=== PATIENT | female | born 1960 ===

== ENCOUNTER 2019-12-17 15:01 | Outpatient (CLI) | payer MEDICAID | END 2019-12-17 15:02 | disposition home or self-care (01) | LOC: SLR 15:01 | PROVIDERS: ATTEND Otolaryngology | DX: G47.33 Obstructive sleep apnea (adult) (pediatric) (principal); R40.0 Somnolence; Z86.73 Personal history of transient ischemic attack (TIA), and cerebral infarction without residual deficits | CPT/HCPCS: 95811 ==

== ENCOUNTER 2020-06-07 12:46 | Emergency (ER) | payer MEDICAID ==
--- NOTE | 2020-06-07 12:57 | Event Note ---
ED Screening Note ED Screening Note: Patient presents for upper abdominal pain that began last night She states that she is have been having intermittent episodes of blood in her stool for a couple weeks and is currently seeing a GI doctor and has an appointment on Saturday She has associated nausea She denies any fever, vomiting, diarrhea She states that she did not take her blood pressure medication this morning but reports that she took it yesterday She denies any chest pain or shortness of breath This initial assessment/diagnostic orders/clinical plan/treatment(s) is/are subject to change based on patients health status, clinical progression and re- assessment by fellow clinical providers in the ED. Further treatment and workup at subsequent clinical providers discretion. Patient/guardian urged not to elope from the ED as their condition may be serious if not clinically assessed and managed. Initial orders include: Labs, UA, EKG, x-ray
--- NOTE | 2020-06-07 13:58 | XRay Report ---
XR abd series w cxr 1V INDICATION / CLINICAL INFORMATION: upper abd pain, htn urgency, gi bleed. COMPARISON: None available. FINDINGS: SUPPORT DEVICES: None. HEART / MEDIASTINUM: No significant abnormality. LUNGS / PLEURA: Lungs are clear. Costophrenic sulci are sharp. No pneumothorax. ABDOMEN: Nonobstructive bowel gas pattern. No pneumoperitoneum. ADDITIONAL FINDINGS: No significant additional findings. IMPRESSION: 1. No acute findings. 2. Moderate quantity of stool. Nonobstructive bowel gas pattern. Signer Name: Andrei Lerner MD Signed: 06/07/2020 1:53 PM Workstation Name: [id number]
[2020-06-07 14:00] LABS: Basophils % (Auto) 0.5 % (0.0-1.8); Eosinophils # (Auto) 0.2 K/mm3 (0.0-0.4); Eosinophils % (Auto) 2.5 % (0.0-4.3); Hematocrit 34.8 % (30.3-42.9); Hemoglobin 11.8 gm/dl (10.1-14.3); Lymphocytes # (Auto) 1.6 K/mm3 (1.2-5.4); Lymphocytes % (Auto) 23.3 % (13.4-35.0); Mean Corpuscular HGB Conc 34 % (30-34); Mean Corpuscular Volume 91 fl (79-97); Monocytes # (Auto) 0.6 K/mm3 (0.0-0.8); Monocytes % (Auto) 8.3 % (0.0-7.3); Platelet Count 260 K/mm3 (140-440); Red Blood Count 3.81 M/mm3 (3.65-5.03); Red Cell Distribution Width 13.2 % (13.2-15.2)
[2020-06-07 14:09] LABS: INR 0.96 (0.87-1.13)
[2020-06-07 14:10] LABS: Partial Thromboplastin Time 28.9 Sec. (24.2-36.6)
[2020-06-07 14:26] LABS: Alanine Aminotransferase 16 units/L (7-56); Albumin 3.3 g/dL (3.9-5); BUN/Creatinine Ratio 14; Blood Urea Nitrogen 40 mg/dL (7-17); Calcium 9.1 mg/dL (8.4-10.2); Hemolysis Index 41
[2020-06-07] MEDS ORDERED: cloNIDine 0.1 MG TAB PO ONE (15:09)
--- NOTE | 2020-06-07 15:15 | Emergency Department Report ---
ED General Adult HPI - General Chief complaint: High BP Stated complaint: ELEVATED BLOOD PRESSURE Time Seen by Provider: 06/07/20 12:56 Source: patient, EMS Mode of arrival: Wheelchair Limitations: No Limitations - History of Present Illness Initial comments: Patient is 59 years old female with history of hypertension and chronic kidney disease. Patient presented to the ER complaining of elevated blood pressure and upper abdominal pain. Patient denied any chest pain or shortness of breath. Patient also denied any headache, neck pain, weakness numbness or tingling sensation. Patient stated that she has been taking her blood pressure but having trouble controlled the blood pressure. She was sent to the emergency room by her railway signalling engineer for evaluation. - Related Data Allergies Allergy/AdvReac Type Severity Reaction Status Date / Time metoclopramide [From Reglan] AdvReac Shortness Verified 06/07/20 12:58 of Breath morphine AdvReac Shortness Verified 06/07/20 12:58 of Breath ondansetron [From Zofran] AdvReac Shortness Verified 06/07/20 12:58 of Breath oxycodone AdvReac Shortness Verified 06/07/20 12:58 of Breath Penicillins AdvReac Hives Verified 06/07/20 12:58 tramadol AdvReac Vomiting Verified 06/07/20 12:58 ED Review of Systems ROS: Stated complaint: ELEVATED BLOOD PRESSURE Other details as noted in HPI Comment: All other systems reviewed and negative Constitutional: denies: chills, fever ENT: denies: throat pain Respiratory: denies: orthopnea, shortness of breath Cardiovascular: denies: chest pain, palpitations Gastrointestinal: abdominal pain, constipation. denies: nausea, vomiting, diarrhea, hematemesis, melena, hematochezia Musculoskeletal: denies: back pain Neurological: denies: headache, weakness, numbness, paresthesias, confusion, abnormal gait ED Past Medical Hx - Past Medical History Hx Hypertension: Yes Hx Congestive Heart Failure: Yes Hx Diabetes: Yes Hx Renal Disease: Yes Additional medical history: vit d deficiency - Social History Smoking Status: Never Smoker Substance Use Type: None ED Physical Exam - General Limitations: No Limitations General appearance: alert, in no apparent distress - Head Head exam: Present: atraumatic, normocephalic, normal inspection - Eye Eye exam: Present: normal appearance, PERRL - ENT ENT exam: Present: normal exam, normal orophraynx, mucous membranes moist - Neck Neck exam: Present: normal inspection, full ROM. Absent: tenderness, meningismus - Respiratory Respiratory exam: Present: normal lung sounds bilaterally - Cardiovascular Cardiovascular Exam: Present: regular rate, normal rhythm, normal heart sounds - GI/Abdominal GI/Abdominal exam: Present: soft, normal bowel sounds. Absent: distended, tenderness, guarding, rebound, rigid, organomegaly, mass, bruit, pulsatile mass, hernia - Extremities Exam Extremities exam: Present: normal inspection, full ROM, normal capillary refill - Back Exam Back exam: Present: normal inspection, full ROM. Absent: CVA tenderness (R), CVA tenderness (L) - Neurological Exam Neurological exam: Present: alert, oriented X3, CN II-XII intact - Psychiatric Psychiatric exam: Present: normal mood - Skin Skin exam: Present: warm, dry, intact ED Course Vital Signs 06/07/20 12:56 Temperature 98.3 F Pulse Rate 80 Respiratory 20 Rate Blood Pressure 208/106 O2 Sat by Pulse 100 Oximetry ED Medical Decision Making - Lab Data Result diagrams: 06/07/20 13:15 06/07/20 13:15 - EKG Data -: EKG Interpreted by Mt EKG shows normal: sinus rhythm Rate: normal - EKG Data Interpretation: no acute changes - Radiology Data Radiology results: report reviewed - Medical Decision Making Patient is 59 years old female with history of hypertension and chronic kidney disease. Patient presented to the ER complaining of elevated blood pressure and upper abdominal pain. Patient denied any chest pain or shortness of breath. Patient also denied any headache, neck pain, weakness numbness or tingling sensation. Patient stated that she has been taking her blood pressure but having trouble controlled the blood pressure. She was sent to the emergency room by her railway signalling engineer for evaluation. EKG is unremarkable. Chest x-ray and abdomen is negative for acute finding except for constipation. Labs reviewed and is unremarkable except for chronic elevation of creatinine of 2.9 and a BUN of 40. Patient received clonidine 0.2 mg which helped her blood pressure significantly. Patient advised to follow-up with her primary care physician and her railway signalling engineer in the next 2 to 3 days and to return to the ER if she develop any new symptoms. Critical care attestation.: If time is entered above; I have spent that time in minutes in the direct care of this critically ill patient, excluding procedure time. ED Disposition Clinical Impression: Malignant hypertension, Acute abdominal pain, Constipation Disposition: DC-01 TO HOME OR SELFCARE Is pt being admited?: No Condition: Stable Instructions: Hypertension (ED), Constipation, Adult, Abdominal Pain, Adult, Managing Your Hypertension Referrals: PRIMARY CARE, [Referring] - 3-5 Days
[2020-06-07 17:46] VITALS: BP 178/88
--- NOTE | 2020-06-09 10:42 | Electrocardiograph Report ---
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
== END 2020-06-07 17:05 | disposition home or self-care (01) ==
LOC: ED 12:46
DX: I13.0 Hypertensive heart and chronic kidney disease with heart failure and stage 1 through stage 4 chronic kidney disease, or unspecified chronic kidney disease (principal); N18.9 Chronic kidney disease, unspecified; E11.22 Type 2 diabetes mellitus with diabetic chronic kidney disease; I50.9 Heart failure, unspecified; K59.00 Constipation, unspecified; R10.10 Upper abdominal pain, unspecified; Z79.899 Other long term (current) drug therapy; Z88.8 Allergy status to other drugs, medicaments and biological substances
CPT/HCPCS: 36415; 74022; 80053; 83690; 84484; 85025; 85610; 85730; 93005

== ENCOUNTER 2021-09-08 12:26 | Inpatient (IN) | payer MEDICARE ==
[2021-09-08] MEDS ORDERED: HYDROmorphone 1 MG/1 ML INJ IV ONE ×2 (13:24→17:31)
[2021-09-08] MEDS ORDERED: ONDANSETRON 4 MG/2 ML INJ IV ONE ×2 (13:24→17:31)
--- NOTE | 2021-09-08 13:56 | XRay Report ---
CHEST 1 VIEW 09/08/2021 12:46 PM INDICATION / CLINICAL INFORMATION: Vas-Cath pain. COMPARISON: 06/07/20. FINDINGS: SUPPORT DEVICES: There is a new right jugular Vas-Cath with the tip overlying the upper right atrium. HEART / MEDIASTINUM: There is borderline cardiomegaly. Pulmonary vasculature is slightly prominent ce ntrally. LUNGS / PLEURA: Interstitial lung markings in the lower lung zones are increased. No focal consolidat ion or pleural effusion. No pneumothorax. ADDITIONAL FINDINGS: No significant additional findings. IMPRESSION: Probable mild interstitial edema. Signer Name: Domo Nj MD Signed: 09/08/2021 1:51 PM Workstation Name: [email or web address]
--- NOTE | 2021-09-08 14:00 | Emergency Department Report ---
ED General Adult HPI - General Chief complaint: Medical Clearance Stated complaint: CHEST PAIN/NON CARDIAC Time Seen by Provider: 09/08/21 12:58 Source: EMS Mode of arrival: Stretcher Limitations: No Limitations - History of Present Illness Initial comments: 60-year-old female the past medical history of CHF, diabetes, end-stage renal disease on dialysis Saturday, Saturday, Saturday, hypertension presents to the hospital complaints of right thoracic chest pain at area of Vas-Cath and right inguinal/pubic mounds pain. Patient has had right sided chest wall pain at area of Vas-Cath for at least 1 month and worsening for the past week. Patient did receive her dialysis Saturday, and Saturday, however, did not receive dialysis today because transportation did not pick her up as scheduled. [facility] also [facility] to have her chest wall catheter checked however, her transportation did not show up to take her to her scheduled appointment. Vas-Cath was originally October 2020 when her dialysis was initiated. patient had a left arm AV access placed by her vascular surgeon 9 days ago however, it is not mature enough for use. Patient has a secondary complaint of right inguinal and pubic mounds pain due to a "cyst" for the past 4 days. No trauma reported. Patient can feel a "cyst" deep in the right pubic mounds area it is tender to palpation And she feels that her right upper thigh is swollen. Pain is constant, worse with palpation, moderate in intensity, without alleviating factors. no reports of fever. Grip Boss: Dr. Chavez Severity scale (0 -10): 7 - Related Data Previous Rx's Medication Instructions Recorded Last Taken Type Docusate Sodium [Colace] 100 mg PO BID PRN #60 capsule 06/07/20 Unknown Rx Lactulose 10 gm PO DAILY #70 ml 06/07/20 Unknown Rx Allergies Allergy/AdvReac Type Severity Reaction Status Date / Time Penicillins Allergy Hives Verified 09/08/21 18:21 metoclopramide [From Reglan] AdvReac Shortness Verified 09/08/21 12:35 of Breath morphine AdvReac Shortness Verified 09/08/21 12:35 of Breath ondansetron [From Zofran] AdvReac Shortness Verified 09/08/21 12:35 of Breath oxycodone AdvReac Shortness Verified 09/08/21 12:35 of Breath tramadol AdvReac Vomiting Verified 09/08/21 12:35 ED Review of Systems ROS: Stated complaint: CHEST PAIN/NON CARDIAC Other details as noted in HPI Comment: All other systems reviewed and negative ED Past Medical Hx - Past Medical History Previous Medical History?: Yes Hx Hypertension: Yes Hx Congestive Heart Failure: Yes Hx Diabetes: Yes Hx Renal Disease: Yes Additional medical history: vit d deficiency - Social History Smoking Status: Never Smoker Substance Use Type: None - Medications Home Medications: Home Medications Medication Instructions Recorded Confirmed Last Taken Type Docusate Sodium [Colace] 100 mg PO BID PRN #60 capsule 06/07/20 Unknown Rx Lactulose 10 gm PO DAILY #70 ml 06/07/20 Unknown Rx ED Physical Exam - General Limitations: No Limitations - Other Other exam information: General: No acute distress Head: Atraumatic Eyes: normal appearance ENT: Moist mucous membranes Neck: Normal appearance, no midline tenderness Chest: Clear to auscultation bilaterally. Right-sided chest wall Vas-Cath. Is no longer secured by adhesive and there is not a suture anchoring the catheter. No skin erythema or drainage. Tenderness along the Burrowed catheter extending towards the neck CV: Regular rate and rhythm Abdomen: Soft, normal bowel sounds, nontender, nondistended, no rebound or guarding Back: Normal inspection Extremity: Normal inspection, full range of motion, tenderness to right inguinal area without palpable mass, abscess, cyst, or adenopathy. Tenderness along the right inferior pubic mounds area. No skin erythema or warmth. No significant swelling noted. 2+ distal DP pulse. lef upper arm av access with sutures in place and palpable thrill Neuro: Alert O x 3, no facial asymmetry, speech clear, no gross motor sensory deficit Psych: Appropriate behavior Skin: No rash ED Course Vital Signs 09/08/21 09/08/21 09/08/21 12:29 13:02 19:20 Temperature 97.6 F 98.4 F Pulse Rate 100 H 96 H 108 H Respiratory 16 18 18 Rate Blood Pressure 180/68 196/98 205/65 [Left] O2 Sat by Pulse 96 98 98 Oximetry - Reevaluation(s) Reevaluation #1: 09/08/21 17:32 Patient continues complain of pain to right pubic mounds area with complaints of palpation of a cyst or not. I was unable to palpate this on examination the patient does have tenderness with deep palpation to the area. Imaging test do not reveal any acute abnormality. Patient states initial Dilaudid 0.5 mg did not help with pain therefore additional Dilaudid and Zofran ordered. - Consultations Consultation #1: 09/08/21 16: [address] Guevara's partner Dr. Grande who recommends admission for dialysis 09/08/21 16: 29 CASE [facility], VAS CATH WILL BE EVALUATED ED Medical Decision Making - Lab Data Result diagrams: 09/08/21 15:03 09/08/21 15:03 Lab Results 09/08/21 09/08/21 Range/Units 15:03 15:03 WBC 8.0 (4.5-11.0) K/mm3 RBC 3.69 (3.65-5.03) M/mm3 Hgb 10.3 (10.1-14.3) gm/dl Hct 32.3 (30.3-42.9) % MCV 88 (79-97) fl MCH 28 (28-32) pg MCHC 32 (30-34) % RDW 16.5 H (13.2-15.2) % Plt Count 306 (140-440) K/mm3 Sodium 142 (137-145) mmol/L Potassium 4.0 (3.6-5.0) mmol/L Chloride 101.4 (98-107) mmol/L Carbon Dioxide 28 (22-30) mmol/L Anion Gap 17 mmol/L BUN 34 H (7-17) mg/dL Creatinine 3.8 H (0.6-1.2) mg/dL Estimated GFR 12 ml/min BUN/Creatinine Ratio 9 % Glucose 106 H (65-100) mg/dL Calcium 9.0 (8.4-10.2) mg/dL - Radiology Data Radiology results: report reviewed CHEST 1 VIEW 09/08/2021 12:46 PM INDICATION / CLINICAL INFORMATION: Vas-Cath pain. COMPARISON: 06/07/20. FINDINGS: SUPPORT DEVICES: There is a new right jugular Vas-Cath with the tip overlying the upper right atrium. HEART / MEDIASTINUM: There is borderline cardiomegaly. Pulmonary vasculature is slightly prominent centrally. LUNGS / PLEURA: Interstitial lung markings in the lower lung zones are increased. No focal consolidation or pleural effusion. No pneumothorax. ADDITIONAL FINDINGS: No significant additional findings. IMPRESSION: Probable mild interstitial edema. Bilateral lower extremity duplex Doppler ultrasound INDICATION: Right inguinal pain FINDINGS: Bilateral common femoral veins, superficial femoral veins and popliteal veins have normal compressibility and phasic flow IMPRESSION: No evidence for DVT. CT ABDOMEN AND PELVIS WITHOUT CONTRAST INDICATION: right inguinal, pelvic pain CONTRAST: Without IV COMPARISON: None available. All CT scans at this location are performed using CT dose reduction for ALARA by means of automated exposure control. FINDINGS: Small bilateral pleural effusions are seen, greater on the left. Small to moderate pericardial effusion. Heart is enlarged. Pacer is noted. Bibasilar atelectatic changes are seen, greater on the left, with mild pneumonitis not excluded. Mild increased interstitial markings are seen which slightly suggest pulmonary edema but is nonspecific. Patulous lower thoracic esophagus is seen as can be noted with reflux. Gallbladder shows no definite abnormalities. No biliary dilatation. No urinary tract calculi or evidence of obstruction. Small calcifications along the course of the ureters appear to be vascular. Colonic diverticulosis without evidence of diverticulitis. No bowel obstruction. No significant abdominal wall herniation. No inflammatory changes. Appendix not visualized. No abdominal or pelvic masses seen. Uterus probably removed. No inguinal hernia is seen. No masses or inflammation noted. IMPRESSION: 1. No acute abnormalities are seen in the abdomen or pelvis. No obvious source of right lateral pain is identified. 2. Findings in the thorax suggesting mild congestive changes. Mild pneumonitis not excluded in the left base. 3. Patulous lower esophagus often seen with reflux. Critical Care Time: No Critical care attestation.: If time is entered above; I have spent that time in minutes in the direct care of this critically ill patient, excluding procedure time. ED Disposition Clinical Impression: ESRD (end stage renal disease), Missed dialysis, Chest wall pain, Right groin pain Disposition: ADMITTED INPATIENT Is pt being admited?: Yes Condition: Stable Time of Disposition: 17:53 (dR Last/HOSPTIALIST)
--- NOTE | 2021-09-08 14:25 | Cat Scan Report ---
CT ABDOMEN AND PELVIS WITHOUT CONTRAST INDICATION: right inguinal, pelvic pain CONTRAST: Without IV COMPARISON: None available. All CT scans at this location are performed using CT dose reduction for ALARA by means of automated e xposure control. FINDINGS: Small bilateral pleural effusions are seen, greater on the left. Small to moderate pericard ial effusion. Heart is enlarged. Pacer is noted. Bibasilar atelectatic changes are seen, greater on t he left, with mild pneumonitis not excluded. Mild increased interstitial markings are seen which slig htly suggest pulmonary edema but is nonspecific. Patulous lower thoracic esophagus is seen as can be noted with reflux. Gallbladder shows no definite abnormalities. No biliary dilatation. No urinary tract calculi or evide nce of obstruction. Small calcifications along the course of the ureters appear to be vascular. Colon ic diverticulosis without evidence of diverticulitis. No bowel obstruction. No significant abdominal wall herniation. No inflammatory changes. Appendix not visualized. No abdominal or pelvic masses seen . Uterus probably removed. No inguinal hernia is seen. No masses or inflammation noted. IMPRESSION: 1. No acute abnormalities are seen in the abdomen or pelvis. No obvious source of right lateral pain is identified. 2. Findings in the thorax suggesting mild congestive changes. Mild pneumonitis not excluded in the le ft base. 3. Patulous lower esophagus often seen with reflux. Signer Name: Zachary Juarez MD Signed: 09/08/2021 2:20 PM Workstation Name: [id number]
--- NOTE | 2021-09-08 14:33 | Vascular Lab Report ---
Bilateral lower extremity duplex Doppler ultrasound INDICATION: Right inguinal pain FINDINGS: Bilateral common femoral veins, superficial femoral veins and popliteal veins have normal c ompressibility and phasic flow IMPRESSION: No evidence for DVT. Signer Name: Craig Harper MD Signed: 09/08/2021 2:29 PM Workstation Name: [id number]
[2021-09-08 15:27] LABS: Hematocrit 32.3 % (30.3-42.9); Hemoglobin 10.3 gm/dl (10.1-14.3); Mean Corpuscular HGB Conc 32 % (30-34); Mean Corpuscular Volume 88 fl (79-97); Platelet Count 306 K/mm3 (140-440); Red Blood Count 3.69 M/mm3 (3.65-5.03); Red Cell Distribution Width 16.5 % (13.2-15.2)
--- NOTE | 2021-09-08 16:31 | Event Note ---
Date: 09/08/21 60-year-old female who presents with end-stage renal disease and right PermCath tenderness along the tract. No erythema. No white count. No purulence. Sutures are no longer connected to the catheter, but the catheter has been in place since October 2020. This is expected with for a catheter that has been in place for so long. In the absence of infection, or catheter malfunction, I am not sure what we can offer the patient other than pain medication. Will see patient tomorrow. Consider blood cultures in the interim.
[2021-09-08 17:24] LABS: Basophils % (Manual) 0 % (0.0-1.8); Total Cells Counted 100
[2021-09-08 17:33] LABS: Anisocytosis 2+; Hypochromasia 1+; Platelet Estimate Consistent w Auto; Stomatocytes Few; Target Cells 1+
[2021-09-08] MEDS ORDERED: ACETAMINOPHEN 325 MG TAB PO PRN (18:01)
[2021-09-08] MEDS ORDERED: ONDANSETRON 4 MG/2 ML INJ IV PRN (18:01)
[2021-09-08] MEDS ORDERED: oxyCODONE /ACETAMINOPHEN 5-325MG TAB PO PRN (18:01)
[2021-09-08] MEDS ORDERED: METOCLOPRAMIDE 10 MG/2 ML INJ IV PRN (18:01)
[2021-09-08] MEDS ORDERED: diphenhydrAMINE 25 MG CAP PO PRN (20:00)
[2021-09-08] MEDS ORDERED: hydrALAZINE 20 MG/1 ML INJ ONE (22:53)
[2021-09-08 23:00] VITALS: BP 207/107
[2021-09-09] MEDS ORDERED: traZODone 100 MG TAB PO ONE (00:07)
--- NOTE | 2021-09-09 07:39 | History and Physical Report ---
History of Present Illness Date of examination: 09/08/21 Date of admission: 09/08/21 18:01 Chief complaint: Missed hemodialysis today History of present illness: 60-year-old female the past medical history of CHF, diabetes, end-stage renal disease on dialysis Saturday, Saturday, Saturday, hypertension presents to the hospital complaints of right thoracic chest pain at area of Vas-Cath and right inguinal/pubic mounds pain. Patient has had right sided chest wall pain at area of Vas-Cath for at least 1 month and worsening for the past week. Patient did receive her dialysis Saturday, and Saturday, however, did not receive dialysis today because transportation did not pick her up as scheduled. She also was supposed to follow-up with [facility] vascular Dr. Queen 4 days ago to have her chest wall catheter checked however, her transportation did not show up to take her to her scheduled appointment. Vas-Cath was originally October 2020 when her dialysis was initiated. patient had a left arm AV access placed by her vascular surgeon 9 days ago however, it is not mature enough for use. - Past Medical History --Previous Medical History?: Yes --Hypertension: Yes --Congestive Heart Failure: Yes --Diabetes: Yes --Renal Disease: Yes --Additional medical history: vit d deficiency - Social History --Smoking Status: Never Smoker --Substance Use Type: None - Medications --Home Medications: Home Medications Medication Instructions Recorded Confirmed Last Taken Type Docusate Sodium [Colace] 100 mg PO BID PRN #60 capsule 06/07/20 Unknown Rx Lactulose 10 gm PO DAILY #70 ml 06/07/20 Unknown Rx Review of Systems ROS: Stated complaint: CHEST PAIN/NON CARDIAC Other details as noted in HPI Comment: All other systems reviewed and negative Medications and Allergies Allergies Allergy/AdvReac Type Severity Reaction Status Date / Time Penicillins Allergy Hives Verified 09/08/21 18:21 metoclopramide [From Reglan] AdvReac Shortness Verified 09/08/21 12:35 of Breath morphine AdvReac Shortness Verified 09/08/21 12:35 of Breath ondansetron [From Zofran] AdvReac Shortness Verified 09/08/21 12:35 of Breath oxycodone AdvReac Shortness Verified 09/08/21 12:35 of Breath tramadol AdvReac Vomiting Verified 09/08/21 12:35 Home Medications Medication Instructions Recorded Confirmed Last Taken Type Docusate Sodium [Colace] 100 mg PO BID PRN #60 capsule 06/07/20 Unknown Rx Lactulose 10 gm PO DAILY #70 ml 06/07/20 Unknown Rx traZODone [Desyrel] 100 mg PO QHS 09/09/21 09/09/21 Unknown History Exam - Constitutional Vitals: Temp Pulse Resp BP Pulse Ox 98.4 F 90 25 H 207/107 94 09/08/21 19:20 09/08/21 22:58 09/08/21 22:01 09/08/21 22:58 09/08/21 21:01 General appearance: Present: no acute distress, well-nourished - EENT Eyes: Present: PERRL ENT: hearing intact, clear oral mucosa - Neck Neck: Present: supple, normal ROM - Respiratory Respiratory effort: normal Respiratory: bilateral: CTA - Cardiovascular Heart rate: 78 Rhythm: regular Heart Sounds: Present: S1 & S2. Absent: rub, click - Extremities Extremities: pulses symmetrical, No edema Peripheral Pulses: within normal limits - Abdominal General gastrointestinal: Present: soft, non-tender, non-distended, normal bowel sounds Female genitourinary: Present: normal - Integumentary Integumentary: Present: clear, warm, dry - Musculoskeletal Musculoskeletal: gait normal, strength equal bilaterally - Psychiatric Psychiatric: appropriate mood/affect, intact judgment & insight - Neurologic Neurologic: CNII-XII intact, moves all extremities Results - Labs CBC & Chem 7: 09/08/21 15:03 09/08/21 15:03 Labs: Laboratory Last Values WBC 8.0 K/mm3 (4.5-11.0) 09/08/21 15:03 RBC 3.69 M/mm3 (3.65-5.03) 09/08/21 15:03 Hgb 10.3 gm/dl (10.1-14.3) 09/08/21 15:03 Hct 32.3 % (30.3-42.9) 09/08/21 15:03 MCV 88 fl (79-97) 09/08/21 15:03 MCH 28 pg (28-32) 09/08/21 15:03 MCHC 32 % (30-34) 09/08/21 15:03 RDW 16.5 % (13.2-15.2) H 09/08/21 15:03 Plt Count 306 K/mm3 (140-440) 09/08/21 15:03 Add Manual Diff Complete 09/08/21 15:03 Total Counted 100 09/08/21 15:03 Seg Neuts % (Manual) 66.0 % (40.0-70.0) 09/08/21 15:03 Band Neutrophils % 0 % 09/08/21 15:03 Lymphocytes % (Manual) 19.0 % (13.4-35.0) 09/08/21 15:03 Reactive Lymphs % (Man) 0 % 09/08/21 15:03 Monocytes % (Manual) 10.0 % (0.0-7.3) H 09/08/21 15:03 Eosinophils % (Manual) 5.0 % (0.0-4.3) H 09/08/21 15:03 Basophils % (Manual) 0 % (0.0-1.8) 09/08/21 15:03 Metamyelocytes % 0 % 09/08/21 15:03 Myelocytes % 0 % 09/08/21 15:03 Promyelocytes % 0 % 09/08/21 15:03 Blast Cells % 0 % 09/08/21 15:03 Nucleated RBC % Not Reportable 09/08/21 15:03 Seg Neutrophils # Man 5.3 K/mm3 (1.8-7.7) 09/08/21 15:03 Band Neutrophils # 0.0 K/mm3 09/08/21 15:03 Lymphocytes # (Manual) 1.5 K/mm3 (1.2-5.4) 09/08/21 15:03 Abs React Lymphs (Man) 0.0 K/mm3 09/08/21 15:03 Monocytes # (Manual) 0.8 K/mm3 (0.0-0.8) 09/08/21 15:03 Eosinophils # (Manual) 0.4 K/mm3 (0.0-0.4) 09/08/21 15:03 Basophils # (Manual) 0.0 K/mm3 (0.0-0.1) 09/08/21 15:03 Metamyelocytes # 0.0 K/mm3 09/08/21 15:03 Myelocytes # 0.0 K/mm3 09/08/21 15:03 Promyelocytes # 0.0 K/mm3 09/08/21 15:03 Blast Cells # 0.0 K/mm3 09/08/21 15:03 WBC Morphology Not Reportable 09/08/21 15:03 Hypersegmented Neuts Not Reportable 09/08/21 15:03 Hyposegmented Neuts Not Reportable 09/08/21 15:03 Hypogranular Neuts Not Reportable 09/08/21 15:03 Smudge Cells Not Reportable 09/08/21 15:03 Toxic Granulation Not Reportable 09/08/21 15:03 Toxic Vacuolation Not Reportable 09/08/21 15:03 Dohle Bodies Not Reportable 09/08/21 15:03 Pelger-Huet Anomaly Not Reportable 09/08/21 15:03 Mimi Rods Not Reportable 09/08/21 15:03 Platelet Estimate Consistent w auto 09/08/21 15:03 Clumped Platelets Not Reportable 09/08/21 15:03 Plt Clumps, EDTA Not Reportable 09/08/21 15:03 Large Platelets Not Reportable 09/08/21 15:03 Giant Platelets Not Reportable 09/08/21 15:03 Platelet Satelliting Not Reportable 09/08/21 15:03 Plt Morphology Comment Not Reportable 09/08/21 15:03 RBC Morphology Not Reportable 09/08/21 15:03 Dimorphic RBCs Not Reportable 09/08/21 15:03 Polychromasia Not Reportable 09/08/21 15:03 Hypochromasia 1+ 09/08/21 15:03 Poikilocytosis Not Reportable 09/08/21 15:03 Anisocytosis 2+ 09/08/21 15:03 Microcytosis Not Reportable 09/08/21 15:03 Macrocytosis Not Reportable 09/08/21 15:03 Spherocytes Not Reportable 09/08/21 15:03 Pappenheimer Bodies Not Reportable 09/08/21 15:03 Sickle Cells Not Reportable 09/08/21 15:03 Target Cells 1+ 09/08/21 15:03 Tear Drop Cells Not Reportable 09/08/21 15:03 Ovalocytes Not Reportable 09/08/21 15:03 Stomatocytes Few 09/08/21 15:03 Helmet Cells Not Reportable 09/08/21 15:03 [place] Bodies Not Reportable 09/08/21 15:03 [place] Rings Not Reportable 09/08/21 15:03 Olivia Cells Not Reportable 09/08/21 15:03 Bite Cells Not Reportable 09/08/21 15:03 Crenated Cell Not Reportable 09/08/21 15:03 Elliptocytes Not Reportable 09/08/21 15:03 Acanthocytes (Spur) Not Reportable 09/08/21 15:03 Rouleaux Not Reportable 09/08/21 15:03 Hemoglobin C Crystals Not Reportable 09/08/21 15:03 Schistocytes Not Reportable 09/08/21 15:03 Malaria parasites Not Reportable 09/08/21 15:03 Ty Bodies Not Reportable 09/08/21 15:03 Hem Pathologist Commnt No 09/08/21 15:03 Sodium 142 mmol/L (137-145) 09/08/21 15:03 Potassium 4.0 mmol/L (3.6-5.0) 09/08/21 15:03 Chloride 101.4 mmol/L (98-107) 09/08/21 15:03 Carbon Dioxide 28 mmol/L (22-30) 09/08/21 15:03 Anion Gap 17 mmol/L 09/08/21 15:03 BUN 34 mg/dL (7-17) H 09/08/21 15:03 Creatinine 3.8 mg/dL (0.6-1.2) H 09/08/21 15:03 Estimated GFR 12 ml/min 09/08/21 15:03 BUN/Creatinine Ratio 9 % 09/08/21 15:03 Glucose 106 mg/dL (65-100) H 09/08/21 15:03 Calcium 9.0 mg/dL (8.4-10.2) 09/08/21 15:03 Short CBC 09/08/21 Range/Units 15:03 WBC 8.0 (4.5-11.0) K/mm3 Hgb 10.3 (10.1-14.3) gm/dl Hct 32.3 (30.3-42.9) % Plt Count 306 (140-440) K/mm3 BMP 09/08/21 15:03 Sodium 142 Potassium 4.0 Chloride 101.4 Carbon Dioxide 28 BUN 34 H Creatinine 3.8 H Glucose 106 H Calcium 9.0 Assessment and Plan Advance Directives: Yes (Full code) VTE prophylaxis?: Chemical Plan of care discussed with patient/family: Yes - Patient Problems (1) Hypervolemia Status: Acute Plan to address problem: Secondary to missed hemodialysis Needs emergent hemodialysis (2) End-stage renal disease on hemodialysis Status: Chronic Plan to address problem: Nephrology consulted (3) Chest wall pain Status: Acute Plan to address problem: Had Vas-Cath for nearly 9 to 10 months Patient had a AV fistula to 2 days ago Needs a Vas-Cath change (4) Hypertension Status: Chronic Qualifiers: Hypertension type: primary hypertension Qualified Code(s): I10 - Essential (primary) hypertension Plan to address problem: Continue antihypertensives and adjust medications (5) DVT prophylaxis Status: Acute Plan to address problem: On heparin and GI prophylaxis (6) Advance care planning Status: Acute Plan to address problem: Disease education conducted, care plan discussed, patient's diagnosis discussed, and prognosis discussed. Patient acknowledges understanding with care plan +30 minutes.
--- NOTE | 2021-09-09 07:42 | Discharge Summary ---
Providers - Providers Date of Admission: 09/08/21 18:01 Date of discharge: 09/09/21 Attending physician: TITUS CALVO 09/08/21 16:12 Consult to Physician [CONS] Urgent Comment: Consulting Provider: PAMELA MARIN Physician Instructions: Reason For Exam: ersd missed dialysis 09/08/21 16:29 Consult to Physician [CONS] Urgent Comment: Consulting Provider: SYDNEE JOSE Physician Instructions: Reason For Exam: right vascath pain Primary care physician: CAYETANO GARCIA Hospitalization Condition: Stable Hospital course: Patient was admitted for missed hemodialysis and possible Vas-Cath placement. Nephrology was consulted Vascular surgery was consulted Patient was to get hemodialysis early a.m. but patient decided to sign out AMA Disposition: LEFT AGAINST MEDICAL ADVICE Final Discharge Diagnosis (Prints w/discharge instructions): Hyperkalemia. Vas- Cath malfunction. End-stage renal disease on hemodialysis Time spent for discharge: 35 minutes - Discharge Diagnoses (1) Hypervolemia Status: Acute (2) End-stage renal disease on hemodialysis Status: Chronic (3) Chest wall pain Status: Acute (4) Hypertension Status: Chronic Qualifiers: Hypertension type: primary hypertension Qualified Code(s): I10 - Essential (primary) hypertension (5) DVT prophylaxis Status: Acute (6) Advance care planning Status: Acute Core Measure Documentation - Palliative Care Palliative Care/ Comfort Measures: Not Applicable - Core Measures Any of the following diagnoses?: none Exam - Constitutional Vitals: Temp Pulse Resp BP Pulse Ox 98.4 F 90 25 H 207/107 94 09/08/21 19:20 09/08/21 22:58 09/08/21 22:01 09/08/21 22:58 09/08/21 21:01 General appearance: Present: no acute distress, well-nourished - EENT Eyes: Present: PERRL ENT: hearing intact, clear oral mucosa - Neck Neck: Present: supple, normal ROM - Respiratory Respiratory effort: normal Respiratory: bilateral: CTA - Cardiovascular Heart rate: 78 Rhythm: regular Heart Sounds: Present: S1 & S2. Absent: rub, click - Extremities Extremities: pulses symmetrical, No edema Peripheral Pulses: within normal limits - Abdominal General gastrointestinal: Present: soft, non-tender, non-distended, normal bowel sounds Female genitourinary: Present: normal - Integumentary Integumentary: Present: clear, warm, dry - Musculoskeletal Musculoskeletal: gait normal, strength equal bilaterally - Psychiatric Psychiatric: appropriate mood/affect, intact judgment & insight - Neurologic Neurologic: CNII-XII intact, moves all extremities Plan Activity: no restrictions Diet: renal Follow up with: CAYETANO GARCIA MD [Primary Care Provider] - 3-5 Days Forms: AMA Form
[2021-09-09] MEDS ORDERED: traZODone 100 MG TAB PO SCH (22:00)
[2021-09-09] MEDS ORDERED: hydrALAZINE 20 MG/1 ML INJ IV SCH (23:00)
== END 2021-09-09 01:01 | disposition left against medical advice (07) | DRG 314 ==
LOC: ED 12:26 → 3A 18:01
PROVIDERS: ADMIT Internal Medicine; ATTEND Internal Medicine
DX: T82.898A Other specified complication of vascular prosthetic devices, implants and grafts, initial encounter (principal); N18.6 End stage renal disease; I13.2 Hypertensive heart and chronic kidney disease with heart failure and with stage 5 chronic kidney disease, or end stage renal disease; Y83.8 Other surgical procedures as the cause of abnormal reaction of the patient, or of later complication, without mention of misadventure at the time of the procedure; Y92.89 Other specified places as the place of occurrence of the external cause; E87.5 Hyperkalemia; I50.9 Heart failure, unspecified; Z99.2 Dependence on renal dialysis; E11.22 Type 2 diabetes mellitus with diabetic chronic kidney disease; E87.70 Fluid overload, unspecified; Z53.29 Procedure and treatment not carried out because of patient's decision for other reasons
CPT/HCPCS: 36415; 71045; 74176; 80048; 85007; 85025; G0378; J0360; J1170; J2405